=== PATIENT | male | born 1985 | race Caucasian/White ===

== ENCOUNTER 2018-10-14 20:36 | Emergency (ER) | payer OTHER ==
[~2018-10-14] VITALS: Ht 180.3 cm; Wt 104.8 kg
--- NOTE | 2018-10-14 20:48 | NUR ---
PT BIBSELF FOR FEVER TODAY, ; PT AAOX4, -SOB, NADN QUIRINOED, VSS, PENDING MD EVANS
[2018-10-14] MEDS ORDERED: ACETAMINOPHEN ES 500 MG TABLET PO ONE (21:00)
[2018-10-14] MEDS ORDERED: IV NS 0.9% 1,000 ML BAG IV ONE (21:00)
[2018-10-14] MEDS ORDERED: ACETAMINOPHEN ES 500 MG TABLET ONE (21:10)
[2018-10-14 21:12] LABS: BASOPHILS % (AUTO) 0.3 % (0.0-2.0); EOSINOPHILS % (AUTO) 0.1 % (0.0-6.0); HEMATOCRIT 48 % (39-51); HEMOGLOBIN 16.4 g/dL (13.5-17.5); LYMPHOCYTES # (AUTO) 0.7 /CMM (0.8-4.8); LYMPHOCYTES % (AUTO) 4.9 % (20.0-44.0); MEAN CORPUSCULAR HGB CONC 35 g/dl (31.0-36.0); MEAN CORPUSCULAR VOLUME 90 fL (80-96); MONOCYTES # (AUTO) 0.8 /CMM (0.1-1.30); MONOCYTES % (AUTO) 5.5 % (2.0-12.0); NEUTROPHILS # (AUTO) 12.9 /CMM (1.8-8.9); NEUTROPHILS % (AUTO) 89.2 % (43.0-81.0); PLATELET COUNT (AUTO) 253 /CMM (150-450); RED BLOOD CELL COUNT(AUTO) 5.27 MIL/uL (4.5-6.0); WHITE BLOOD COUNT (AUTO) 14.4 K/uL (4.3-11.0)
[2018-10-14 21:24] LABS: CARBON DIOXIDE 21 mmol/L (21-32); CHLORIDE 101 mmol/L (98-107); CREATININE 1.2 mg/dL (0.6-1.3); GLUCOSE 112 mg/dL (74-106); POTASSIUM 3.9 mmol/L (3.5-5.1); SODIUM SERUM 134 mmol/L (136-145); UREA NITROGEN, BLOOD 16 mg/dL (7-18)
[2018-10-14 21:29] LABS: ALANINE AMINOTRANSFERASE 76 U/L (12-78); ALBUMIN 3.9 g/dL (3.4-5.0); ALKALINE PHOSPHATASE 73 U/L (46-116); ASPARTATE AMINOTRANSFERASE 27 U/L (15-37); BILIRUBIN,DIRECT 0.2 mg/dL (0.0-0.2); BILIRUBIN,TOTAL 0.8 mg/dL (0.2-1.0); TOTAL PROTEIN, SERUM 7.8 g/dL (6.4-8.2)
[2018-10-14 21:30] VITALS: BP 142/91
--- NOTE | 2018-10-14 21:49 | NUR ---
URINE COLLECTED AND SENT TO LAB
[2018-10-14 21:55] LABS: APPEARANCE,URINE Clear (CLEAR); BILIRUBIN,URINE Negative (NEGATIVE); BLOOD, URINE Negative Ery/uL (NEGATIVE); COLOR,URINE Yellow (YELLOW); KETONES,URINE Trace (NEGATIVE); LEUKOCYTE ESTERASE ,URINE Negative (NEGATIVE); NITRITE, URINE Negative (NEGATIVE); PH,URINE 5.5 (5.0-8.0); PROTEIN,URINE 30 mg/dl (NEGATIVE); UGLUCOSE Negative (NEGATIVE); UROBILINOGEN,URINE 0.2 EU/dL (0.2)
--- NOTE | 2018-10-14 22:57 | NUR ---
Patient discharged to home in stable condition. Written and verbal after care instructions given. Patient verbalizes understanding of instruction. IV removed. Catheter intact and site benign. Pressure and 4x4 applied to site. No bleeding noted.
== END 2018-10-14 22:58 | disposition home or self-care (01) ==
LOC: ER 20:40
DX: J11.1 Influenza due to unidentified influenza virus with other respiratory manifestations (principal); R50.9 Fever, unspecified; R42 Dizziness and giddiness; R00.0 Tachycardia, unspecified; I10 Essential (primary) hypertension; F41.9 Anxiety disorder, unspecified
CPT/HCPCS: 36415; 80048; 80076; 81001; 84484; 85025; 85730; 87070; 87880; 96360; 99283; J7030 ×2; 81000-TC; 86403-TC